=== PATIENT | female | born 1965 | race Caucasian/White ===

== ENCOUNTER 2017-05-05 08:17 | Inpatient (IN) | payer OTHER ==
[~2017-05-05 08:17] MED LIST: Buffered Lidocaine 0.9% SYRIN* 5 ML/SYR SYRINGE INTRADERM ONE; Dexamethasone IV* 4 MG/ML 1 ML (4 MG) IV SLOW PU ONE; Famotidine IV* 10 MG/ML 2 ML (20 mg) IV ONE; Scopolamine 1.5 mg* PATCH TRANSDERM ONE
[2017-05-05] MEDS ORDERED: Famotidine IV* 10 MG/ML 2 ML (20 mg) ONE (08:29)
[2017-05-05] MEDS ORDERED: Scopolamine 1.5 mg* PATCH ONE (08:29)
[2017-05-05] MEDS ORDERED: Dexamethasone IV* 4 MG/ML 1 ML (4 MG) ONE (08:29)
[2017-05-05] MEDS ORDERED: Clindamycin 900 MG IVPREMIX(* 900 MG/50 ML SDV IV ONE (08:30)
[2017-05-05] MEDS ORDERED: ceFAZolin 1 GM ADVAN(*) 1 GM ADDV.VIAL IVPB ONE (08:30)
[2017-05-05] MEDS ORDERED: ceFAZolin 2 GM PREMIX (*) 2 GM/50 ML BAG IVPB ONE (08:30)
[2017-05-05] MEDS ORDERED: Buffered Lidocaine 0.9% SYRIN* 5 ML/SYR SYRINGE ONE (08:30)
[2017-05-05] MEDS ORDERED: Heparin VIAL(*) 5000 UNITS/ML VIAL (FIVE THOUSAND) ONE (08:47)
[2017-05-05] MEDS ORDERED: Bupivacaine 0.25% SDV* 30 ML ONE (11:12)
[2017-05-05] MEDS ORDERED: Lidocaine 2% PF * 5 ML VIAL ONE (11:38)
[2017-05-05] MEDS ORDERED: Propofol* 10 MG/ML 20 ML BTL IV PUSH ONE (11:38)
[2017-05-05] MEDS ORDERED: fentaNYL* 50 MCG/ML 2 ML VIAL (100 MCG VIAL) ONE ×3 (11:39→13:57)
[2017-05-05] MEDS ORDERED: Cisatracurium* 2 MG/ML MDV 5 ML ONE (11:39)
[2017-05-05] MEDS ORDERED: Ondansetron INJ* 2 MG/ML VIAL ONE (12:22)
[2017-05-05] MEDS ORDERED: Ketorolac INJ* 30 MG/ML 1 ML VIAL ONE (12:23)
[2017-05-05] MEDS ORDERED: Chlorhexidine MW 0.12% 473ML* STOCK BOTTLE * USE UNIT DOSE ONE (12:28)
[2017-05-05] MEDS ORDERED: Acetaminophen IV 1GM/100ML * 1,000 MG/100 ML VIAL IVPB ONE (12:39)
[2017-05-05] MEDS ORDERED: PROCHLORPERAZINE INJ 5 MG/ML 2 ML VIAL IV PRN (12:39)
--- NOTE | 2017-05-05 13:34 | PN ---
Progress Note - Progress Note Date of Service: 05/05/17 Note: Brief Operative Note: Pre-op: Morbid obesity Post-op: Same Procedure: Laparoscopic sleeve gastrectomy with hiatal hernia repair Surgeon: Dr. Redmond Director Housekeeping: ANDREA Pandey Anaesthesia: GETA EBL: Minimal Fluids: LR 1500 cc Drains: None Catheter: None Specimen: Portion of stomach Findings: See dictated op note
[2017-05-05] MEDS ORDERED: Acetaminophen IV 1GM/100ML * 100 ML ONE (13:37)
[2017-05-05] MEDS ORDERED: Morphine INJ* 10 MG/ML 1 ML CARPUJECT ONE (13:57)
[2017-05-05] MEDS: fentaNYL* 50 MCG/ML 2 ML VIAL (100 MCG VIAL) IV PRN ×2 (13:58→14:13)
[2017-05-05] MEDS: Morphine INJ* 2 MG/ML 1 ML CARPUJECT IV PRN ×2 (14:03→15:22)
[2017-05-05] MEDS: Ketorolac INJ* 30 MG/ML 1 ML VIAL IV PRN (16:33)
[2017-05-05] MEDS: HYDROmorphone INJ* 1 MG/ML CARPUJECT SYRINGE IV PRN ×2 (18:17→21:35)
[2017-05-05] MEDS: Pantoprazole IV* 40 MG IV SCH (21:35)
[2017-05-05] MEDS: Ondansetron INJ* 2 MG/ML VIAL IV PRN (21:35)
[2017-05-05] MEDS: Heparin VIAL(*) 5000 UNITS/ML VIAL (FIVE THOUSAND) SUBCUT SCH (21:35)
[2017-05-06] MEDS: HYDROmorphone INJ* 1 MG/ML CARPUJECT SYRINGE IV PRN ×2 (03:40→08:24)
[2017-05-06] MEDS: Ketorolac INJ* 30 MG/ML 1 ML VIAL IV PRN ×2 (04:49→16:56)
[2017-05-06] MEDS: Ondansetron INJ* 2 MG/ML VIAL IV PRN (04:53)
[2017-05-06] MEDS: Heparin VIAL(*) 5000 UNITS/ML VIAL (FIVE THOUSAND) SUBCUT SCH ×3 (06:06→21:19)
[2017-05-06] MEDS ORDERED: Acetaminophen ADULT LIQ* 650 MG/20.3 ML UDC PO PRN (09:07)
--- NOTE | 2017-05-06 09:13 | SURGPN ---
Subjective - Introduction -: Admitted on: 05/05/17 Patient's surgical date: 05/05/17 Procedure completed: - Medications -: Active Medications Generic Name Dose Route Start Last Admin Trade Name Freq PRN Reason Stop Dose Admin Acetaminophen 650 mg 05/06/17 09:07 Tylenol Adult Liq* PO Q6H PRN PAIN Hydrocodone Bitart/Acetaminophen 15 ml 05/06/17 09:07 Nortab 7.5/325 Liq* PO Q6H PRN PAIN Fluticasone Propionate 2 spray 05/06/17 09:00 Flonase Nasal Raysal 50mcg* BOTH NARES QAM SADE Heparin Sodium (Porcine) 5,000 units 05/05/17 22:00 05/06/17 06:06 Heparin Vial(*) SUBCUT 5,000 units Q8HR SADE Administration Hydromorphone HCl 0.5 mg 05/05/17 13:27 05/06/17 08:24 Dilaudid Injic* IV 0.5 mg Q3H PRN Administration PAIN Potassium Chloride/Dextrose 1,000 mls @ 125 mls/hr 05/06/17 13:28 D5w 1/2 Ns Kcl 20 Meq 1000 Ml* IV PER RATE SADE Lactated Ringer's 1,000 mls @ 150 mls/hr 05/05/17 14:00 05/05/17 23:18 Lactated Ringers 1000 Ml Bag* IV 05/06/17 13:28 150 mls/hr PER RATE SADE Administration Ketorolac Tromethamine 30 mg 05/05/17 13:27 05/06/17 04:49 Toradol Inj* IV 05/07/17 13:28 30 mg Q6H PRN Administration PAIN Olopatadine HCl 1 drop 05/06/17 09:00 Patanol 0.1% Ophth (Nf) BOTH EYES QAM [facility] Protocol Ondansetron HCl 4 mg 05/05/17 13:27 05/06/17 04:53 Zofran Inj* IV 4 mg Q6H PRN Administration NAUSEA/VOMITING Pantoprazole Sodium 40 mg 05/05/17 21:00 05/05/17 21:35 Protonix Iv* IV 40 mg Q24H SADE Administration Pharmacy Profile Note 1 note 05/08/17 06:00 Scopolamine Patch Remove* PATCH OFF 05/08/17 06:01 ONCE ONE - Comments Comments: Reports doing well, some shoulder pain and "gas pain" last night, relieved with pain meds. Denies nausea, vomiting, fever or chills. Ambulatory today. Objective - Objective -: Awake and alert, sitting on chair, checking her laptop, in NAD - Intake and Output -: Intake & Output 05/04/17 05/05/17 05/06/17 05/07/17 06:59 06:59 06:59 06:59 Intake Total 3260 Output Total 650 Balance 2610 Weight 230 lb Intake: IV Fluids 3260 LR 3260 Oral 0 Output: Urine 650 Other: Estimated Blood Loss <100 Comment Surgical Physical Exam - Comments -: VSS, afebrile Lungs CTA bilat. Heart RRR, no murmurs Abdomen soft, NT, ND. Incisions C/D/I. I/O reviewed. Assessment and Plan - Assessment -: POD#1, s/p laparoscopic sleeve gastrectomy with hiatal hernia repair, doing well. - Plan Additional Comments: Start Bariatric stage I clear liquids PO Tylenol and Lortab Ambulate as tolerated Likely home this PM or tomorrow AM 05/07
--- NOTE | 2017-05-06 09:24 | OP ---
CC: Eleazar Chiu MD * DATE OF SURGERY: 05/05/17 - ROOM #352 DATE OF : 65 SURGEON: Blanco Redmond MD. FINISHING RANGE OPERATOR: ANDREA Noble. ANESTHESIOLOGIST: Jean-Pierre Alvarez MD. ANESTHESIA: General endotracheal. PREOPERATIVE DIAGNOSIS: Morbid obesity. POSTOPERATIVE DIAGNOSIS: Morbid obesity. OPERATIVE PROCEDURE: Laparoscopic sleeve gastrectomy and laparoscopic hiatal hernia repair. ESTIMATED BLOOD LOSS: Minimal. IV FLUIDS: Crystalloid. SPECIMEN: Portion of stomach. DRAINS: None. COMPLICATIONS: None. COUNTS: The instrument, needle, and sponge counts were correct. DESCRIPTION OF PROCEDURE: The patient was brought to the operating room and placed on the table supine. Sequential compression devices were placed on both lower extremities. General anesthesia was administered. She received appropriate intravenous antibiotics. She was positioned and padded appropriately. She was prepped and draped in the usual sterile fashion. Time- out was performed. Local anesthetic was infiltrated into the skin and soft tissue prior to making each incision. Entry into the abdomen was through a left upper quadrant incision accommodating a 5-mm optical trocar. After accessing the peritoneal cavity, carbon dioxide was insufflated to a pressure of 15 mmHg. Under direct visualization, a 12- mm trocar was placed in the supraumbilical midline and also in the right upper quadrant. Another 5-mm trocar was placed laterally in the left upper quadrant and then a Diego liver retractor was placed percutaneously in the subxiphoid position and used to elevate the left lobe of the liver. The patient as noted to have a moderate-sized hiatal hernia. The hernia was reduced and the gastroesophageal ligament was incised to free the epigastric fat pad. The dissection proceeded from the [id number] across the hiatus, starting with the pars flaccida, which was opened with the LigaSure. At this point, the decision was made to proceed with the sleeve gastrectomy. The pylorus was identified and 6-cm proximal to this, on the greater curvature, the LigaSure was used to skeletonized the stomach. Division of all of the vasculature was completed up to the gastroesophageal junction. Attachments in the lesser sac were divided as well as some posterior showed gastric vessels. At this point, with the entire stomach being free, a sleeve gastrectomy was performed over a 40-[place] Bougie using Endo BRIDGETT stapler cartridges with reinforced purple stable cartridges. After completing the sleeve gastrectomy, the completion of the hiatus was preformed, freeing any attachments to the left gabriel of the diaphragm and creating the retroesophageal space. A quarter-inch Edmond drain was then positioned and then used to manipulate the esophagus. Blunt mobilization and LigaSure mobilization of the esophagus was performed to achieve appropriate intraabdominal length. Next, the hiatal defect was closed with interrupted 0-Ethibond suture closing this to approximately a 2 cm diameter hiatal opening. The repair thus completed. The specimen was retrieved through the right upper quadrant port site. Hemostasis was assured. The Diego liver retractor and ports were all removed under direct visualization. Carbon dioxide was released. The skin was closed with bryn and dressing was applied. The patient tolerated the procedure well, was extubated and transferred to Recovery in stable condition. [id number]/[facility] #: [id number]
[2017-05-06] MEDS: Fluticasone NASAL SPRAY 50MCG* 16 gm SPRAY BTL BOTH NARES SCH (09:38)
[2017-05-06 10:23] LABS: Hematocrit 33 % (35-47); Hemoglobin 10.5 g/dl (12.0-16.0); Mean Corpuscular HGB Conc 32 g/dl (31-36); Mean Corpuscular Hemoglobin 29 pg (27-31); Mean Corpuscular Volume 91 fL (80-97); Mean Platelet Volume 9 um3 (7.4-10.4); Red Blood Count 3.61 10^6/ul (4.0-5.4); Red Cell Distribution Width 14 % (10.5-15); White Blood Count 19.1 10^3/ul (3.5-10.8)
[2017-05-06 10:30] LABS: BUN/Creatinine Ratio 18.9 (8-20); Calcium 8.9 mg/dL (8.6-10.3); EGFR African American 84.6 (>60); EGFR Non-African American 65.8 (>60); Potassium 3.8 mmol/L (3.5-5.0)
--- NOTE | 2017-05-06 11:19 | PN ---
Progress Note - Progress Note Date of Service: 05/06/17 Note: I was called to assess patient for orthostatic hypotension. She apparently got dizzy when she got up from sitting position on her bed. Denies any headache, syncope or blurred vision. A bolus liter of LR was ordered, labs checked. H/H appears to be stable, leukocytosis noted. Dr. Redmond was called and he recommended getting an upper GI for further evaluation. Keep NPO for now, waiting for UGI findings. Likely dehydration causing her orthostatic event, appears to be hemodynamically stable.
[2017-05-06] MEDS: OLOPATADINE 0.1% BOTH EYES SCH (12:37)
[2017-05-06] MEDS: D5W 1/2 NS KCl 20 Meq 1000 ML* 1,000 ML IV SCH ×2 (14:04→21:19)
--- NOTE | 2017-05-06 14:19 | RAD ---
CPT II Codes: 6045F. Indication: Leukocytosis, status post sleeve gastrectomy. 0.3 minutes of fluoroscopy time was used. Fluoroscopic and radiographic examination of the upper GI tract was performed. The study was performed utilizing water-soluble contrast. The esophagus appears normal in anatomy and function. There is no evidence of extraluminal contrast. The patient is status post sleeve gastrectomy. There is free flow of contrast into the duodenum. IMPRESSION: No evidence of extraluminal contrast is noted.
--- NOTE | 2017-05-06 14:41 | PN ---
Progress Note - Progress Note Date of Service: 05/06/17 Note: Upper GI was reviewed, no evidence of a leak Patient is clinically stable, ambulatory down the croft, denies any dizziness, headache or blurred vision. Will resume bariatric clear liquids Home in AM as planned
[2017-05-06] MEDS: HYDROcodone/ACET. 7.5/325 LIQ* 15 ML UDC PO PRN (19:12)
[2017-05-06] MEDS: Pantoprazole IV* 40 MG IV SCH (21:19)
[2017-05-07] MEDS: HYDROcodone/ACET. 7.5/325 LIQ* 15 ML UDC PO PRN (04:14)
[2017-05-07] MEDS: D5W 1/2 NS KCl 20 Meq 1000 ML* 1,000 ML IV SCH (05:31)
[2017-05-07] MEDS: Heparin VIAL(*) 5000 UNITS/ML VIAL (FIVE THOUSAND) SUBCUT SCH (06:09)
[2017-05-07 07:43] VITALS: BP 98/56
[2017-05-07] MEDS: Fluticasone NASAL SPRAY 50MCG* 16 gm SPRAY BTL BOTH NARES SCH (08:30)
[2017-05-07] MEDS: OLOPATADINE 0.1% BOTH EYES SCH (08:30)
--- NOTE | 2017-05-07 09:52 | PN ---
Progress Note - Progress Note Date of Service: 05/07/17 SOAP: Subjective: [Pt seen and examined. Feeling "much better" than yesterday. No nausea. No dizziness. Tolerating clears Objective: af sbp=90s, HR 70-80s uo okay lungs clear abdo: soft/ ND/NT dressing removed, no redness no calf tenderness UGI reviewed Assessment: POD2 sleeve gastectomy, HH repair, HD stable, Plan: d/c IVF d/c home f/u in office
[2017-05-08] MEDS ORDERED: Scopolamine PATCH Remove* 1 NOTE MISC PATCH OFF ONE (06:00)
== END 2017-05-07 10:30 | disposition home or self-care (01) | DRG 621 ==
LOC: AA 08:17 → SSU 15:44
PROVIDERS: ADMIT Surgery; ATTEND Surgery
PROC: 0BQT4ZZ Repair Diaphragm, Percutaneous Endoscopic Approach (ICD-10-PCS; 2017-05-05)
PROC: 0DB64Z3 Excision of Stomach, Percutaneous Endoscopic Approach, Vertical (ICD-10-PCS; principal; 2017-05-05 10:45)
DX: E66.01 Morbid (severe) obesity due to excess calories (principal); E78.2 Mixed hyperlipidemia; G47.33 Obstructive sleep apnea (adult) (pediatric); K44.9 Diaphragmatic hernia without obstruction or gangrene; M25.519 Pain in unspecified shoulder; I95.1 Orthostatic hypotension; I10 Essential (primary) hypertension; Z91.048 Other nonmedicinal substance allergy status; Z85.828 Personal history of other malignant neoplasm of skin; Z98.51 Tubal ligation status; Z83.3 Family history of diabetes mellitus; Z82.49 Family history of ischemic heart disease and other diseases of the circulatory system; Z83.49 Family history of other endocrine, nutritional and metabolic diseases; Z68.41 Body mass index [BMI] 40.0-44.9, adult
CPT/HCPCS: 36415; 43775; 74246; 80048; 85027; 88307; 94760; A9270-GY; J0690; J1100; J1170; J1644; J1885; J2270; J2405; J2704; J3010